=== PATIENT | female | born 1965 | race Caucasian/White ===

== ENCOUNTER 2018-09-07 14:31 | Inpatient (IN) ==
[2018-09-07] MEDS ORDERED: ONDANSETRON 4 MG/2 ML VIAL IV STA (14:55)
[2018-09-07] MEDS ORDERED: PANTOPRAZOLE 40 MG VIAL IV STA (14:55)
[2018-09-07] MEDS ORDERED: SODIUM CHLORIDE 0.9% 1,000 ML IV STA (14:55)
[2018-09-07] MEDS ORDERED: MEPERIDINE 25 MG/1 ML VIAL IV STA (14:58)
[2018-09-07 16:13] LABS: Basophils % 0.2 % (0.0-0.8); Eosinophils # 0.2 10*3/uL (0.0-0.87); Eosinophils % 3.9 % (0.00-10.9); Hemoglobin 11.8 GM/DL (12.0-16.0); Immature Granulocytes % 0.2 %; Immature Granulocytes Absolute 0.01 #; Lymphocytes # 0.8 10*3/uL (1.4-4.0); Lymphocytes % 16.4 % (21.3-54.2); Mean Corpuscular HGB Conc 31.9 GM/DL (32-36); Mean Corpuscular Hemoglobin 27 PG (27-34); Mean Corpuscular Volume 84.3 FL (87-102); Mean Platelet Volume 11.4 FL (9.6-12.0); Monocytes # 0.7 10*3/uL (0.11-0.8); Monocytes % 14.3 % (1.7-12.7); Neutrophils # 3.3 10*3/uL (1.4-7.4); Platelet Count 276 T/CUMM (130-400); Red Blood Count 4.39 MC/CUMM (3.8-5.5); Red Cell Distribution Width 12.5 % (9.3-17.3); White Blood Count 5.1 T/CUMM (4-12)
[2018-09-07 16:31] LABS: Albumin 3.1 G/DL (3.4-5.0); Bilirubin,Total 0.6 MG/DL (0.2-1.0); Calcium 8.1 MG/DL (8.5-10.1); Osmolality,Calculated 271.7 MOS/KG (273-304); Total Protein 6.3 G/DL (6.4-8.3)
[2018-09-07 17:25] LABS: Apearance,Urine Slightly Hazy (Clear); Bilirubin,Urine Negative (Negative); Blood, Urine Negative (Negative); Glucose,Urine (UA) Negative (Negative); Ketones,Urine 80 mg/dL (Negative); Nitrite,Urine Negative (Negative); Protein,Urine Negative; Squamous Epithelial Cell,Urine Many /HPF (0-10); Urine Color Yellow (Yellow); Urine Specific Gravity > 1.060 (1.001-1.035); WBC,Urine 1 /HPF (0-6)
[2018-09-07 17:28] LABS: RBC,Urine Occasional /HPF (0-4)
[2018-09-07] MEDS ORDERED: ONDANSETRON 4 MG TABLET PO PRN (18:22)
[2018-09-07] MEDS ORDERED: ONDANSETRON 4 MG/2 ML VIAL IV PRN (18:22)
[2018-09-07] MEDS ORDERED: ACETAMINOPHEN 325 MG TABLET PO PRN (18:22)
[2018-09-07] MEDS: SODIUM CHLORIDE 0.9% 1,000 ML IV SCH (19:32)
[2018-09-07] MEDS: PIPERACILLIN/TAZOBACTAM 3,375 MG in SODIUM CHLORIDE 0.9% 100 ML IV SCH (19:32)
[2018-09-08] MEDS: PIPERACILLIN/TAZOBACTAM 3,375 MG in SODIUM CHLORIDE 0.9% 100 ML IV SCH ×3 (02:55→18:50)
[2018-09-08 05:39] LABS: Basophils % 0.4 % (0.0-0.8); Eosinophils # 0.3 10*3/uL (0.0-0.87); Eosinophils % 5.3 % (0.00-10.9); Hematocrit 36.6 VOL% (35.7-47.0); Hemoglobin 11.8 GM/DL (12.0-16.0); Immature Granulocytes % 0.2 %; Immature Granulocytes Absolute 0.01 #; Lymphocytes # 0.9 10*3/uL (1.4-4.0); Lymphocytes % 16.5 % (21.3-54.2); Mean Corpuscular HGB Conc 32.2 GM/DL (32-36); Mean Corpuscular Hemoglobin 27 PG (27-34); Mean Corpuscular Volume 84.5 FL (87-102); Monocytes # 0.9 10*3/uL (0.11-0.8); Monocytes % 16.8 % (1.7-12.7); Neutrophils # 3.3 10*3/uL (1.4-7.4); Neutrophils % 60.8 % (38.7-73.9); Platelet Count 282 T/CUMM (130-400); Red Blood Count 4.33 MC/CUMM (3.8-5.5); Red Cell Distribution Width 12.8 % (9.3-17.3); White Blood Count 5.5 T/CUMM (4-12)
[2018-09-08 06:00] LABS: Band Neutrophils 2 % (0-10); Eosinophils 7 % (0-10); Hypochromasia 1+; Lymphocytes 18 % (20-55); Nucleated Red Blood Cells 1 (0-5); Segmented Neutrophils 58 % (50-85); Total Cells Counted 100
[2018-09-08 06:01] LABS: Microcytosis 1+; Platelet Estimate Normal
[2018-09-08 06:03] LABS: Bilirubin,Total 0.8 MG/DL (0.2-1.0); Calcium 8.6 MG/DL (8.5-10.1); Total Protein 6.2 G/DL (6.4-8.3)
[2018-09-08 06:04] LABS: Osmolality,Calculated 270.7 MOS/KG (273-304); Potassium 3.8 MMOL/L (3.5-5.1)
[2018-09-08] MEDS: PANTOPRAZOLE 40 MG VIAL IV SCH (08:54)
[2018-09-08] MEDS: ENOXAPARIN 40 MG/0.4 ML SYRINGE SUBCUT SCH (08:58)
[2018-09-08] MEDS ORDERED: ALBUMIN 25% 25 GM/100 ML VIAL IV ONE (12:23)
[2018-09-08] MEDS ORDERED: ALBUMIN 5% 12.5 GM/250 ML VIAL IV ONE (12:24)
[2018-09-08] MEDS: SODIUM CHLORIDE 0.9% 1,000 ML IV SCH ×2 (12:38→14:58)
[2018-09-08 13:27] LABS: Apearance,Urine CLEAR (Clear); Bilirubin,Urine Negative (Negative); Blood, Urine Negative (Negative); Glucose,Urine (UA) Negative (Negative); Ketones,Urine 80 mg/dL (Negative); Mucus,Urine Occasional /LPF (Occasional); Nitrite,Urine Negative (Negative); Protein,Urine Negative; RBC,Urine 1 /HPF (0-4); Squamous Epithelial Cell,Urine Occasional /HPF (0-10); Urine Color Yellow (Yellow); Urine Specific Gravity 1.021 (1.001-1.035); Urine Urobilinogen < 2.0 EU/DL (0.2-1.0)
[2018-09-08] MEDS ORDERED: ROPIVACAINE 0.5% 30 ML VIAL ONE (13:54)
[2018-09-08] MEDS ORDERED: MEPERIDINE 25 MG/1 ML VIAL ONE ×2 (14:21→14:30)
[2018-09-08] MEDS ORDERED: ONDANSETRON 4 MG/2 ML VIAL ONE ×2 (14:21→14:37)
[2018-09-08] MEDS ORDERED: PROMETHAZINE 25 MG/1 ML VIAL ONE (14:30)
[2018-09-08] MEDS: MEPERIDINE 25 MG/1 ML VIAL IV PRN ×2 (14:30→14:40)
[2018-09-08] MEDS ORDERED: LABETALOL 100 MG/20 ML VIAL IV ONE (14:32)
[2018-09-08] MEDS ORDERED: HYDROmorphone 2 MG/1 ML VIAL ONE (14:33)
[2018-09-08] MEDS ORDERED: PROPOFOL 200 MG/20 ML VIAL IV ONE (14:33)
[2018-09-08] MEDS ORDERED: DESFLURANE 1 UNIT/15 MINUTE INH ONE (14:33)
[2018-09-08] MEDS ORDERED: fentaNYL 100 MCG/2 ML VIAL ONE (14:34)
[2018-09-08] MEDS ORDERED: KETAMINE 500 MG/10 ML VIAL ONE (14:36)
[2018-09-08] MEDS ORDERED: ACETAMINOPHEN 1,000 MG/100 ML VIAL IV ONE (14:37)
[2018-09-08] MEDS ORDERED: ROCURONIUM 100 MG/10 ML VIAL IV ONE (14:37)
[2018-09-08] MEDS ORDERED: GLYCOPYRROLATE 0.4 MG/2 ML VIAL ONE (14:37)
[2018-09-08] MEDS ORDERED: DEXAMETHASONE 10 MG/1 ML VIAL ONE (14:37)
[2018-09-08] MEDS ORDERED: SUCCINYLCHOLINE 200 MG/10 ML VIAL ONE (14:37)
[2018-09-08] MEDS ORDERED: LACTATED RINGERS 2,000 ML IV ONE (14:38)
[2018-09-08] MEDS ORDERED: NEOSTIGMINE 10 MG/10 ML VIAL ONE (14:38)
[2018-09-08] MEDS ORDERED: ONDANSETRON 4 MG/2 ML VIAL IV PRN (14:47)
[2018-09-08] MEDS ORDERED: PROMETHAZINE INJ 25 MG in SODIUM CHLORIDE 0.9% 50 ML IV PRN (14:47)
[2018-09-08] MEDS: MORPHINE 4 MG/1 ML VIAL IV PRN (22:05)
[2018-09-09] MEDS: MORPHINE 4 MG/1 ML VIAL IV PRN ×2 (01:31→05:04)
[2018-09-09] MEDS: SODIUM CHLORIDE 0.9% 1,000 ML IV SCH ×3 (01:59→20:45)
[2018-09-09] MEDS: PIPERACILLIN/TAZOBACTAM 3,375 MG in SODIUM CHLORIDE 0.9% 100 ML IV SCH ×3 (03:05→18:13)
[2018-09-09] MEDS ORDERED: KETOROLAC 30 MG/1 ML VIAL IV ONE (04:21)
[2018-09-09 05:20] LABS: Basophils % 0.4 % (0.0-0.8); Eosinophils % 0.2 % (0.00-10.9); Hematocrit 38.6 VOL% (35.7-47.0); Hemoglobin 12.2 GM/DL (12.0-16.0); Immature Granulocytes % 0.4 %; Immature Granulocytes Absolute 0.03 #; Lymphocytes # 0.6 10*3/uL (1.4-4.0); Lymphocytes % 6.6 % (21.3-54.2); Mean Corpuscular HGB Conc 31.6 GM/DL (32-36); Mean Corpuscular Hemoglobin 27 PG (27-34); Mean Corpuscular Volume 84.8 FL (87-102); Monocytes # 0.9 10*3/uL (0.11-0.8); Monocytes % 10.5 % (1.7-12.7); Neutrophils # 6.9 10*3/uL (1.4-7.4); Neutrophils % 81.9 % (38.7-73.9); Platelet Count 333 T/CUMM (130-400); Red Blood Count 4.55 MC/CUMM (3.8-5.5); Red Cell Distribution Width 12.9 % (9.3-17.3); White Blood Count 8.4 T/CUMM (4-12)
[2018-09-09 05:37] LABS: Calcium 8.7 MG/DL (8.5-10.1); Osmolality,Calculated 266.1 MOS/KG (273-304); Potassium 4.4 MMOL/L (3.5-5.1)
[2018-09-09] MEDS ORDERED: HYDROmorphone 2 MG/1 ML VIAL IV PRN ×2 (08:41)
[2018-09-09] MEDS: PANTOPRAZOLE 40 MG VIAL IV SCH (09:08)
[2018-09-09] MEDS: KETOROLAC 15 MG/1 ML VIAL IV SCH ×3 (09:09→20:41)
[2018-09-09] MEDS: ENOXAPARIN 40 MG/0.4 ML SYRINGE SUBCUT SCH (09:10)
[2018-09-09] MEDS: MEPERIDINE 25 MG/1 ML VIAL IV PRN ×2 (10:37→16:10)
[2018-09-10] MEDS: MEPERIDINE 50 MG/1 ML VIAL IV PRN ×2 (01:34→19:57)
[2018-09-10] MEDS: PIPERACILLIN/TAZOBACTAM 3,375 MG in SODIUM CHLORIDE 0.9% 100 ML IV SCH ×2 (01:37→10:38)
[2018-09-10] MEDS: KETOROLAC 15 MG/1 ML VIAL IV SCH ×4 (02:51→21:02)
[2018-09-10] MEDS: ENOXAPARIN 40 MG/0.4 ML SYRINGE SUBCUT SCH (08:03)
[2018-09-10] MEDS: PANTOPRAZOLE 40 MG VIAL IV SCH (08:03)
[2018-09-10] MEDS: MEPERIDINE 25 MG/1 ML VIAL IV PRN ×2 (08:04→13:45)
[2018-09-10] MEDS: SODIUM CHLORIDE 0.9% 1,000 ML IV SCH ×2 (08:12→20:00)
[2018-09-11] MEDS: KETOROLAC 15 MG/1 ML VIAL IV SCH ×4 (02:15→20:36)
[2018-09-11] MEDS: MEPERIDINE 50 MG/1 ML VIAL IV PRN (05:01)
[2018-09-11] MEDS: SODIUM CHLORIDE 0.9% 1,000 ML IV SCH (05:02)
[2018-09-11 05:38] LABS: Basophils % 0.2 % (0.0-0.8); Eosinophils # 0.6 10*3/uL (0.0-0.87); Eosinophils % 9.5 % (0.00-10.9); Immature Granulocytes % 0.2 %; Immature Granulocytes Absolute 0.01 #; Lymphocytes # 0.4 10*3/uL (1.4-4.0); Lymphocytes % 6.7 % (21.3-54.2); Mean Corpuscular HGB Conc 32.3 GM/DL (32-36); Mean Corpuscular Hemoglobin 27 PG (27-34); Mean Platelet Volume 11.8 FL (9.6-12.0); Monocytes # 0.7 10*3/uL (0.11-0.8); Monocytes % 10.3 % (1.7-12.7); Neutrophils # 4.7 10*3/uL (1.4-7.4); Neutrophils % 73.1 % (38.7-73.9); Platelet Count 267 T/CUMM (130-400); Red Blood Count 3.69 MC/CUMM (3.8-5.5); Red Cell Distribution Width 13.6 % (9.3-17.3); White Blood Count 6.4 T/CUMM (4-12)
[2018-09-11 05:45] LABS: Calcium 8.4 MG/DL (8.5-10.1); Osmolality,Calculated 276.3 MOS/KG (273-304); Potassium 3.4 MMOL/L (3.5-5.1)
[2018-09-11] MEDS: PANTOPRAZOLE 40 MG VIAL IV SCH (09:01)
[2018-09-11] MEDS ORDERED: SODIUM CHLORIDE 0.9% 1,000 ML IV SCH (10:00)
[2018-09-11] MEDS: ENOXAPARIN 40 MG/0.4 ML SYRINGE SUBCUT SCH (10:56)
[2018-09-11] MEDS: POTASSIUM CHLORIDE INJ 20 MEQ in LACTATED RINGERS 1,000 ML IV SCH (11:23)
[2018-09-11] MEDS: MEPERIDINE 25 MG/1 ML VIAL IV PRN ×2 (11:56→20:37)
[2018-09-12] MEDS: MEPERIDINE 25 MG/1 ML VIAL IV PRN ×3 (03:40→18:00)
[2018-09-12] MEDS: KETOROLAC 15 MG/1 ML VIAL IV SCH ×4 (03:40→20:40)
[2018-09-12 06:09] LABS: Calcium 8.7 MG/DL (8.5-10.1); Osmolality,Calculated 278.1 MOS/KG (273-304); Potassium 3.7 MMOL/L (3.5-5.1)
[2018-09-12] MEDS: PANTOPRAZOLE 40 MG VIAL IV SCH (08:45)
[2018-09-12] MEDS: ENOXAPARIN 40 MG/0.4 ML SYRINGE SUBCUT SCH (08:46)
[2018-09-12] MEDS: MEPERIDINE 50 MG/1 ML VIAL IV PRN (11:26)
[2018-09-12] MEDS: POTASSIUM CHLORIDE INJ 20 MEQ in LACTATED RINGERS 1,000 ML IV SCH (12:48)
[2018-09-13] MEDS: MEPERIDINE 25 MG/1 ML VIAL IV PRN ×3 (00:58→19:16)
[2018-09-13] MEDS: KETOROLAC 15 MG/1 ML VIAL IV SCH ×4 (04:04→21:24)
[2018-09-13] MEDS: PANTOPRAZOLE 40 MG VIAL IV SCH (09:03)
[2018-09-13] MEDS: POTASSIUM CHLORIDE INJ 20 MEQ in LACTATED RINGERS 1,000 ML IV SCH (09:03)
[2018-09-13] MEDS: ENOXAPARIN 40 MG/0.4 ML SYRINGE SUBCUT SCH (09:06)
[2018-09-13] MEDS: MEPERIDINE 50 MG/1 ML VIAL IV PRN (12:41)
[2018-09-14] MEDS: MEPERIDINE 25 MG/1 ML VIAL IV PRN (01:51)
[2018-09-14] MEDS: KETOROLAC 15 MG/1 ML VIAL IV SCH (03:37)
[2018-09-14] MEDS: POTASSIUM CHLORIDE INJ 20 MEQ in LACTATED RINGERS 1,000 ML IV SCH (05:08)
[2018-09-14 07:33] VITALS: BP 126/80
[2018-09-14] MEDS: PANTOPRAZOLE 40 MG VIAL IV SCH (08:53)
[2018-09-14] MEDS: MEPERIDINE 50 MG/1 ML VIAL IV PRN (08:59)
[2018-09-14] MEDS: ENOXAPARIN 40 MG/0.4 ML SYRINGE SUBCUT SCH (09:03)
== END 2018-09-14 10:06 | disposition home or self-care (01) | DRG 330 ==
LOC: N.ED 14:31 → N.EDINP 17:00 → N.3E 18:09
PROVIDERS: ADMIT Surgery; ATTEND Surgery

== ENCOUNTER 2018-09-18 09:34 | Inpatient (IN) ==
[2018-09-18] MEDS ORDERED: LACTATED RINGERS 1,000 ML IV ONE (10:43)
[2018-09-18 10:59] LABS: Basophils # 0.1 10*3/uL (0.0-0.2); Basophils % 0.2 % (0.0-0.8); Eosinophils # 0.1 10*3/uL (0.0-0.87); Eosinophils % 0.4 % (0.00-10.9); Hematocrit 31.7 VOL% (35.7-47.0); Hemoglobin 10.3 GM/DL (12.0-16.0); Immature Granulocytes % 1.7 %; Immature Granulocytes Absolute 0.41 #; Lymphocytes # 0.5 10*3/uL (1.4-4.0); Mean Corpuscular HGB Conc 32.5 GM/DL (32-36); Mean Corpuscular Hemoglobin 27 PG (27-34); Mean Corpuscular Volume 81.9 FL (87-102); Mean Platelet Volume 10.6 FL (9.6-12.0); Monocytes # 1.4 10*3/uL (0.11-0.8); Monocytes % 5.5 % (1.7-12.7); Neutrophils # 22.2 10*3/uL (1.4-7.4); Neutrophils % 90.2 % (38.7-73.9); Platelet Count 416 T/CUMM (130-400); Red Blood Count 3.87 MC/CUMM (3.8-5.5); Red Cell Distribution Width 13.7 % (9.3-17.3); White Blood Count 24.6 T/CUMM (4-12)
[2018-09-18] MEDS ORDERED: LACTATED RINGERS 1,000 ML IV SCH (11:00)
[2018-09-18 11:18] LABS: Band Neutrophils 2 % (0-10); Eosinophils 1 % (0-10); Hypochromasia 1+; Lymphocytes 6 % (20-55); Platelet Estimate Adequate; Segmented Neutrophils 87 % (50-85); Total Cells Counted 100
[2018-09-18 11:20] LABS: Albumin 2.2 G/DL (3.4-5.0); Bilirubin,Total 1.1 MG/DL (0.2-1.0); Calcium 8.8 MG/DL (8.5-10.1); Osmolality,Calculated 270.1 MOS/KG (273-304); Potassium 3.1 MMOL/L (3.5-5.1); Total Protein 6.4 G/DL (6.4-8.3)
[2018-09-18] MEDS ORDERED: ALBUTEROL/IPRATROPIUM 3 ML NEB RESP TX PRN (11:59)
[2018-09-18] MEDS ORDERED: KETOROLAC 15 MG/1 ML VIAL IV PRN (11:59)
[2018-09-18] MEDS: PANTOPRAZOLE 40 MG VIAL IV SCH (13:55)
[2018-09-18] MEDS: PIPERACILLIN/TAZOBACTAM 3,375 MG in SODIUM CHLORIDE 0.9% 100 ML IV SCH ×2 (13:57→21:01)
[2018-09-18] MEDS: ONDANSETRON 4 MG/2 ML VIAL IV PRN (14:31)
[2018-09-18] MEDS: MEPERIDINE 25 MG/1 ML VIAL IV PRN ×2 (14:31→21:03)
[2018-09-18] MEDS: MEPERIDINE 50 MG TABLET PO PRN (17:36)
[2018-09-18] MEDS: metroNIDAZOLE INJ 500 MG in PREMIX 1 EACH IV SCH (18:18)
[2018-09-19] MEDS: MEPERIDINE 25 MG/1 ML VIAL IV PRN ×3 (03:25→13:47)
[2018-09-19] MEDS: metroNIDAZOLE INJ 500 MG in PREMIX 1 EACH IV SCH ×3 (03:26→19:44)
[2018-09-19] MEDS: PIPERACILLIN/TAZOBACTAM 3,375 MG in SODIUM CHLORIDE 0.9% 100 ML IV SCH ×3 (05:29→22:47)
[2018-09-19 05:58] LABS: Basophils % 0.3 % (0.0-0.8); Eosinophils # 0.1 10*3/uL (0.0-0.87); Eosinophils % 0.9 % (0.00-10.9); Hematocrit 25.9 VOL% (35.7-47.0); Hemoglobin 8.4 GM/DL (12.0-16.0); Immature Granulocytes Absolute 0.15 #; Lymphocytes # 0.6 10*3/uL (1.4-4.0); Lymphocytes % 3.8 % (21.3-54.2); Mean Corpuscular HGB Conc 32.4 GM/DL (32-36); Mean Corpuscular Hemoglobin 27 PG (27-34); Mean Corpuscular Volume 82.5 FL (87-102); Monocytes # 0.9 10*3/uL (0.11-0.8); Monocytes % 5.9 % (1.7-12.7); Neutrophils # 13.4 10*3/uL (1.4-7.4); Neutrophils % 88.1 % (38.7-73.9); Platelet Count 371 T/CUMM (130-400); Red Blood Count 3.14 MC/CUMM (3.8-5.5); Red Cell Distribution Width 13.9 % (9.3-17.3); White Blood Count 15.2 T/CUMM (4-12)
[2018-09-19 06:16] LABS: Albumin 1.7 G/DL (3.4-5.0); Bilirubin,Total 1.1 MG/DL (0.2-1.0); Calcium 8.2 MG/DL (8.5-10.1); Osmolality,Calculated 266.1 MOS/KG (273-304); Total Protein 5.2 G/DL (6.4-8.3)
[2018-09-19 06:23] LABS: Eosinophils 8 % (0-10); Lymphocytes 2 % (20-55); Segmented Neutrophils 84 % (50-85); Total Cells Counted 100
[2018-09-19 06:24] LABS: Hypochromasia 1+; Platelet Estimate Normal
[2018-09-19] MEDS: PANTOPRAZOLE 40 MG VIAL IV SCH (09:46)
[2018-09-19] MEDS: ONDANSETRON 4 MG/2 ML VIAL IV PRN (09:47)
[2018-09-19] MEDS: SODIUM CHLOR 0.9% KCL 40 MEQ 40 MEQ/1,000 ML BAG IV SCH ×2 (10:02→15:57)
[2018-09-19] MEDS: MEPERIDINE 50 MG TABLET PO PRN ×2 (16:56→22:48)
[2018-09-20] MEDS: SODIUM CHLOR 0.9% KCL 40 MEQ 40 MEQ/1,000 ML BAG IV SCH ×3 (00:58→23:13)
[2018-09-20] MEDS: metroNIDAZOLE INJ 500 MG in PREMIX 1 EACH IV SCH ×3 (03:49→21:07)
[2018-09-20 05:36] LABS: Basophils % 0.3 % (0.0-0.8); Eosinophils # 0.4 10*3/uL (0.0-0.87); Eosinophils % 3.5 % (0.00-10.9); Hematocrit 25.7 VOL% (35.7-47.0); Hemoglobin 8.3 GM/DL (12.0-16.0); Immature Granulocytes % 0.8 %; Lymphocytes # 0.7 10*3/uL (1.4-4.0); Lymphocytes % 5.5 % (21.3-54.2); Mean Corpuscular HGB Conc 32.3 GM/DL (32-36); Mean Corpuscular Hemoglobin 26 PG (27-34); Mean Corpuscular Volume 81.8 FL (87-102); Mean Platelet Volume 10.9 FL (9.6-12.0); Monocytes # 0.8 10*3/uL (0.11-0.8); Monocytes % 6.5 % (1.7-12.7); Neutrophils # 9.9 10*3/uL (1.4-7.4); Neutrophils % 83.4 % (38.7-73.9); Platelet Count 423 T/CUMM (130-400); Red Blood Count 3.14 MC/CUMM (3.8-5.5); Red Cell Distribution Width 14.3 % (9.3-17.3); White Blood Count 11.9 T/CUMM (4-12)
[2018-09-20] MEDS: PIPERACILLIN/TAZOBACTAM 3,375 MG in SODIUM CHLORIDE 0.9% 100 ML IV SCH ×3 (05:37→21:34)
[2018-09-20 05:46] LABS: Calcium 8.1 MG/DL (8.5-10.1); Osmolality,Calculated 266.1 MOS/KG (273-304); Potassium 3.3 MMOL/L (3.5-5.1)
[2018-09-20] MEDS: PANTOPRAZOLE 40 MG VIAL IV SCH (09:50)
[2018-09-20] MEDS: ENOXAPARIN 40 MG/0.4 ML SYRINGE SUBCUT SCH (14:40)
[2018-09-20] MEDS: ONDANSETRON 4 MG/2 ML VIAL IV PRN ×2 (16:10→21:36)
[2018-09-20] MEDS: MEPERIDINE 25 MG/1 ML VIAL IV PRN (16:10)
[2018-09-20] MEDS: POTASSIUM CHLORIDE RIDER 10 MEQ in PREMIX 1 EACH IV PRN ×3 (16:24→22:55)
[2018-09-20] MEDS: CLOTRIMAZOLE 10 MG TROCHE PO SCH ×2 (18:01→21:36)
[2018-09-20] MEDS ORDERED: PROMETHAZINE 25 MG/1 ML VIAL IM PRN (19:47)
[2018-09-20] MEDS: MEPERIDINE 50 MG TABLET PO PRN (21:35)
[2018-09-20] MEDS: ACETAMINOPHEN 325 MG TABLET PO PRN (23:19)
[2018-09-21] MEDS: MEPERIDINE 50 MG TABLET PO PRN ×3 (00:46→17:07)
[2018-09-21] MEDS: metroNIDAZOLE INJ 500 MG in PREMIX 1 EACH IV SCH ×3 (02:22→17:08)
[2018-09-21] MEDS: PIPERACILLIN/TAZOBACTAM 3,375 MG in SODIUM CHLORIDE 0.9% 100 ML IV SCH (05:14)
[2018-09-21 05:56] LABS: Basophils # 0.1 10*3/uL (0.0-0.2); Basophils % 0.4 % (0.0-0.8); Eosinophils # 0.6 10*3/uL (0.0-0.87); Eosinophils % 4.7 % (0.00-10.9); Hematocrit 29.9 VOL% (35.7-47.0); Hemoglobin 9.4 GM/DL (12.0-16.0); Immature Granulocytes Absolute 0.26 #; Lymphocytes % 7.8 % (21.3-54.2); Mean Corpuscular HGB Conc 31.4 GM/DL (32-36); Mean Corpuscular Hemoglobin 26 PG (27-34); Mean Corpuscular Volume 82.8 FL (87-102); Mean Platelet Volume 10.6 FL (9.6-12.0); Monocytes # 0.7 10*3/uL (0.11-0.8); Monocytes % 5.5 % (1.7-12.7); Neutrophils # 10.2 10*3/uL (1.4-7.4); Neutrophils % 79.6 % (38.7-73.9); Platelet Count 506 T/CUMM (130-400); Red Blood Count 3.61 MC/CUMM (3.8-5.5); Red Cell Distribution Width 14.3 % (9.3-17.3); White Blood Count 12.9 T/CUMM (4-12)
[2018-09-21 06:16] LABS: Calcium 8.8 MG/DL (8.5-10.1); Potassium 5.1 MMOL/L (3.5-5.1)
[2018-09-21 06:23] LABS: Hypochromasia 1+; Ovalocytes Slight; Platelet Estimate Adequate
[2018-09-21] MEDS: ONDANSETRON 4 MG/2 ML VIAL IV PRN ×4 (06:59→21:28)
[2018-09-21] MEDS: SODIUM CHLOR 0.9% KCL 40 MEQ 40 MEQ/1,000 ML BAG IV SCH ×4 (08:13→21:33)
[2018-09-21] MEDS ORDERED: cefTRIAXone 2,000 MG in SODIUM CHLORIDE 0.9% 100 ML IV SCH (09:00)
[2018-09-21] MEDS: PANTOPRAZOLE 40 MG VIAL IV SCH (09:46)
[2018-09-21] MEDS: cefTRIAXone 1,000 MG in SYRINGE 1 EACH IV SCH (09:46)
[2018-09-21] MEDS: CLOTRIMAZOLE 10 MG TROCHE PO SCH ×4 (09:46→21:26)
[2018-09-21] MEDS ORDERED: DEXTROSE 50% 25 GM/50 ML VIAL IV PRN (11:00)
[2018-09-21] MEDS ORDERED: GLUCAGON 1 MG VIAL IM PRN (11:00)
[2018-09-21] MEDS: ENOXAPARIN 40 MG/0.4 ML SYRINGE SUBCUT SCH (13:01)
[2018-09-21] MEDS: FAT EMULSION 20% 250 ML IV SCH (15:17)
[2018-09-21] MEDS ORDERED: TRACE ELEMENTS (5) 1 ML, MULTIVITAMIN INJ 10 ML in AMINO ACIDS/DEXT/LYTES 5-15% 2,000 ML IV SCH (17:00)
[2018-09-21] MEDS: MEPERIDINE 25 MG/1 ML VIAL IV PRN ×2 (17:18→21:35)
[2018-09-21] MEDS: INSULIN REGULAR 100 UNIT/ML SUBCUT SCH ×2 (18:01→21:57)
[2018-09-22] MEDS: INSULIN REGULAR 100 UNIT/ML SUBCUT SCH ×6 (01:08→21:37)
[2018-09-22] MEDS: metroNIDAZOLE INJ 500 MG in PREMIX 1 EACH IV SCH ×3 (01:09→17:49)
[2018-09-22] MEDS: ONDANSETRON 4 MG/2 ML VIAL IV PRN ×5 (01:36→19:55)
[2018-09-22] MEDS: MEPERIDINE 25 MG/1 ML VIAL IV PRN ×5 (01:40→20:39)
[2018-09-22 06:16] LABS: Calcium 8.4 MG/DL (8.5-10.1); Potassium 3.9 MMOL/L (3.5-5.1)
[2018-09-22] MEDS: SODIUM CHLOR 0.9% KCL 40 MEQ 40 MEQ/1,000 ML BAG IV SCH (07:43)
[2018-09-22] MEDS: CLOTRIMAZOLE 10 MG TROCHE PO SCH ×4 (09:00→21:36)
[2018-09-22] MEDS: PANTOPRAZOLE 40 MG VIAL IV SCH (09:09)
[2018-09-22] MEDS: cefTRIAXone 1,000 MG in SYRINGE 1 EACH IV SCH (09:10)
[2018-09-22] MEDS: ENOXAPARIN 40 MG/0.4 ML SYRINGE SUBCUT SCH (12:22)
[2018-09-22] MEDS: FAT EMULSION 20% 250 ML IV SCH (14:59)
[2018-09-22] MEDS: TRACE ELEMENTS (5) 1 ML, MULTIVITAMIN INJ 10 ML in AMINO ACIDS/DEXT/LYTES 5-15% 2,000 ML IV SCH (16:41)
[2018-09-22] MEDS ORDERED: DEXTROSE 10% 1,000 ML IV PRN (17:00)
[2018-09-22] MEDS: HYDROmorphone 2 MG/1 ML VIAL IV PRN ×2 (19:53→23:29)
[2018-09-23] MEDS: HYDROmorphone 2 MG/1 ML VIAL IV PRN ×2 (02:00→05:13)
[2018-09-23] MEDS: ONDANSETRON 4 MG/2 ML VIAL IV PRN ×4 (02:01→21:09)
[2018-09-23] MEDS: metroNIDAZOLE INJ 500 MG in PREMIX 1 EACH IV SCH ×3 (02:53→18:32)
[2018-09-23 04:57] LABS: Basophils # 0.1 10*3/uL (0.0-0.2); Eosinophils # 0.9 10*3/uL (0.0-0.87); Eosinophils % 8.1 % (0.00-10.9); Hematocrit 30.7 VOL% (35.7-47.0); Hemoglobin 9.6 GM/DL (12.0-16.0); Immature Granulocytes % 5.2 %; Immature Granulocytes Absolute 0.55 #; Lymphocytes # 1.2 10*3/uL (1.4-4.0); Lymphocytes % 11.7 % (21.3-54.2); Mean Corpuscular HGB Conc 31.3 GM/DL (32-36); Mean Corpuscular Hemoglobin 26 PG (27-34); Mean Corpuscular Volume 83.7 FL (87-102); Mean Platelet Volume 11.2 FL (9.6-12.0); Monocytes # 0.9 10*3/uL (0.11-0.8); Monocytes % 8.4 % (1.7-12.7); Neutrophils % 65.6 % (38.7-73.9); Platelet Count 436 T/CUMM (130-400); Red Blood Count 3.67 MC/CUMM (3.8-5.5); Red Cell Distribution Width 14.3 % (9.3-17.3); White Blood Count 10.6 T/CUMM (4-12)
[2018-09-23] MEDS: SODIUM CHLOR 0.9% KCL 40 MEQ 40 MEQ/1,000 ML BAG IV SCH (05:12)
[2018-09-23 05:23] LABS: Calcium 8.7 MG/DL (8.5-10.1); Osmolality,Calculated 276.7 MOS/KG (273-304); Potassium 4.2 MMOL/L (3.5-5.1)
[2018-09-23 05:26] LABS: Eosinophils 5 % (0-10); Lymphocytes 17 % (20-55); Metamyelocytes 5 %; Platelet Estimate Increased; Polychromasia 2+; Segmented Neutrophils 63 % (50-85); Total Cells Counted 100
[2018-09-23] MEDS: MEPERIDINE 25 MG/1 ML VIAL IV PRN ×2 (06:09→11:25)
[2018-09-23] MEDS: INSULIN REGULAR 100 UNIT/ML SUBCUT SCH ×4 (06:50→20:53)
[2018-09-23] MEDS: CLOTRIMAZOLE 10 MG TROCHE PO SCH ×4 (09:02→20:54)
[2018-09-23] MEDS: PANTOPRAZOLE 40 MG VIAL IV SCH (09:04)
[2018-09-23] MEDS: cefTRIAXone 1,000 MG in SYRINGE 1 EACH IV SCH (09:05)
[2018-09-23] MEDS: ENOXAPARIN 40 MG/0.4 ML SYRINGE SUBCUT SCH (11:06)
[2018-09-23] MEDS: TRACE ELEMENTS (5) 1 ML, MULTIVITAMIN INJ 10 ML in AMINO ACIDS/DEXT/LYTES 5-15% 2,000 ML IV SCH (16:36)
[2018-09-23] MEDS: FAT EMULSION 20% 250 ML IV SCH (16:45)
[2018-09-23] MEDS: MEPERIDINE 50 MG TABLET PO PRN (21:08)
[2018-09-24] MEDS: metroNIDAZOLE INJ 500 MG in PREMIX 1 EACH IV SCH ×3 (01:21→19:27)
[2018-09-24] MEDS: SODIUM CHLOR 0.9% KCL 40 MEQ 40 MEQ/1,000 ML BAG IV SCH (04:05)
[2018-09-24] MEDS: MEPERIDINE 50 MG TABLET PO PRN ×3 (04:23→21:36)
[2018-09-24 05:51] LABS: Calcium 8.7 MG/DL (8.5-10.1); Osmolality,Calculated 276.7 MOS/KG (273-304); Potassium 4.2 MMOL/L (3.5-5.1); Prealbumin 19.1 MG/DL (20-40)
[2018-09-24] MEDS: cefTRIAXone 1,000 MG in SYRINGE 1 EACH IV SCH (08:44)
[2018-09-24] MEDS: PANTOPRAZOLE 40 MG VIAL IV SCH (08:44)
[2018-09-24] MEDS: INSULIN REGULAR 100 UNIT/ML SUBCUT SCH ×4 (08:58→21:38)
[2018-09-24] MEDS: CLOTRIMAZOLE 10 MG TROCHE PO SCH ×4 (08:59→23:37)
[2018-09-24] MEDS: ENOXAPARIN 40 MG/0.4 ML SYRINGE SUBCUT SCH (10:36)
[2018-09-24] MEDS: TRACE ELEMENTS (5) 1 ML, MULTIVITAMIN INJ 10 ML in AMINO ACIDS/DEXT/LYTES 5-15% 2,000 ML IV SCH (16:19)
[2018-09-24] MEDS: FAT EMULSION 20% 250 ML IV SCH (16:19)
[2018-09-25] MEDS: metroNIDAZOLE INJ 500 MG in PREMIX 1 EACH IV SCH ×3 (01:33→21:50)
[2018-09-25 06:32] LABS: Basophils # 0.1 10*3/uL (0.0-0.2); Basophils % 0.9 % (0.0-0.8); Eosinophils # 1.5 10*3/uL (0.0-0.87); Eosinophils % 13.7 % (0.00-10.9); Hematocrit 30.2 VOL% (35.7-47.0); Hemoglobin 9.3 GM/DL (12.0-16.0); Immature Granulocytes Absolute 0.88 #; Lymphocytes % 9.4 % (21.3-54.2); Mean Corpuscular HGB Conc 30.8 GM/DL (32-36); Mean Corpuscular Hemoglobin 26 PG (27-34); Mean Corpuscular Volume 85.3 FL (87-102); Mean Platelet Volume 11.5 FL (9.6-12.0); Monocytes # 1.1 10*3/uL (0.11-0.8); Monocytes % 9.8 % (1.7-12.7); Neutrophils # 6.4 10*3/uL (1.4-7.4); Neutrophils % 58.2 % (38.7-73.9); Platelet Count 394 T/CUMM (130-400); Red Blood Count 3.54 MC/CUMM (3.8-5.5); Red Cell Distribution Width 14.5 % (9.3-17.3)
[2018-09-25 06:54] LABS: Calcium 8.7 MG/DL (8.5-10.1); Potassium 4.1 MMOL/L (3.5-5.1)
[2018-09-25 07:09] LABS: Eosinophils 16 % (0-10); Hypochromasia 1+; Lymphocytes 14 % (20-55); Myelocytes 1 %; Segmented Neutrophils 57 % (50-85); Total Cells Counted 100
[2018-09-25 07:10] LABS: Microcytosis 1+; Platelet Estimate Normal
[2018-09-25] MEDS: INSULIN REGULAR 100 UNIT/ML SUBCUT SCH ×4 (07:52→21:50)
[2018-09-25] MEDS: PANTOPRAZOLE 40 MG VIAL IV SCH (08:52)
[2018-09-25] MEDS: cefTRIAXone 1,000 MG in SYRINGE 1 EACH IV SCH (08:53)
[2018-09-25] MEDS: MEPERIDINE 25 MG/1 ML VIAL IV PRN ×3 (08:55→20:10)
[2018-09-25] MEDS ORDERED: fentaNYL 100 MCG/2 ML VIAL IV ONE (09:19)
[2018-09-25] MEDS ORDERED: DIAZEPAM 5 MG TABLET PO ONE (09:19)
[2018-09-25] MEDS ORDERED: MIDAZOLAM 2 MG/2 ML VIAL IV ONE (09:19)
[2018-09-25] MEDS: CLOTRIMAZOLE 10 MG TROCHE PO SCH ×4 (09:36→21:49)
[2018-09-25] MEDS: ENOXAPARIN 40 MG/0.4 ML SYRINGE SUBCUT SCH (12:20)
[2018-09-25] MEDS: ONDANSETRON 4 MG/2 ML VIAL IV PRN ×2 (13:40→20:13)
[2018-09-25] MEDS: TRACE ELEMENTS (5) 1 ML, MULTIVITAMIN INJ 10 ML in AMINO ACIDS/DEXT/LYTES 5-15% 2,000 ML IV SCH (15:58)
[2018-09-25] MEDS: FAT EMULSION 20% 250 ML IV SCH (15:58)
[2018-09-26] MEDS: MEPERIDINE 25 MG/1 ML VIAL IV PRN ×5 (01:30→21:32)
[2018-09-26] MEDS: ONDANSETRON 4 MG/2 ML VIAL IV PRN ×5 (01:32→21:35)
[2018-09-26] MEDS: metroNIDAZOLE INJ 500 MG in PREMIX 1 EACH IV SCH ×3 (04:26→20:47)
[2018-09-26] MEDS: INSULIN REGULAR 100 UNIT/ML SUBCUT SCH ×4 (07:45→20:47)
[2018-09-26] MEDS: cefTRIAXone 1,000 MG in SYRINGE 1 EACH IV SCH ×2 (07:46→08:34)
[2018-09-26] MEDS: PANTOPRAZOLE 40 MG VIAL IV SCH ×2 (07:46→08:34)
[2018-09-26] MEDS: CLOTRIMAZOLE 10 MG TROCHE PO SCH ×4 (08:34→20:48)
[2018-09-26] MEDS: ENOXAPARIN 40 MG/0.4 ML SYRINGE SUBCUT SCH (11:24)
[2018-09-26] MEDS: FAT EMULSION 20% 250 ML IV SCH (15:02)
[2018-09-26] MEDS: TRACE ELEMENTS (5) 1 ML, MULTIVITAMIN INJ 10 ML in AMINO ACIDS/DEXT/LYTES 5-15% 2,000 ML IV SCH (15:04)
[2018-09-27] MEDS: MEPERIDINE 25 MG/1 ML VIAL IV PRN ×5 (02:24→20:30)
[2018-09-27] MEDS: ONDANSETRON 4 MG/2 ML VIAL IV PRN ×4 (02:27→15:16)
[2018-09-27] MEDS: metroNIDAZOLE INJ 500 MG in PREMIX 1 EACH IV SCH ×3 (04:26→20:31)
[2018-09-27] MEDS: INSULIN REGULAR 100 UNIT/ML SUBCUT SCH ×4 (07:30→21:30)
[2018-09-27] MEDS: cefTRIAXone 1,000 MG in SYRINGE 1 EACH IV SCH ×2 (07:51→09:27)
[2018-09-27] MEDS: PANTOPRAZOLE 40 MG VIAL IV SCH ×2 (07:52→09:27)
[2018-09-27] MEDS: CLOTRIMAZOLE 10 MG TROCHE PO SCH ×4 (09:27→21:29)
[2018-09-27] MEDS: ENOXAPARIN 40 MG/0.4 ML SYRINGE SUBCUT SCH (13:12)
[2018-09-27] MEDS: TRACE ELEMENTS (5) 1 ML, MULTIVITAMIN INJ 10 ML in AMINO ACIDS/DEXT/LYTES 5-15% 2,000 ML IV SCH (16:09)
[2018-09-27] MEDS: FAT EMULSION 20% 250 ML IV SCH (16:10)
[2018-09-28] MEDS: MEPERIDINE 25 MG/1 ML VIAL IV PRN ×2 (00:56→04:36)
[2018-09-28] MEDS: ONDANSETRON 4 MG/2 ML VIAL IV PRN ×2 (00:59→04:40)
[2018-09-28] MEDS: metroNIDAZOLE INJ 500 MG in PREMIX 1 EACH IV SCH ×3 (04:41→21:57)
[2018-09-28 05:46] LABS: Calcium 8.5 MG/DL (8.5-10.1); Osmolality,Calculated 276.7 MOS/KG (273-304); Prealbumin 23.7 MG/DL (20-40)
[2018-09-28] MEDS: INSULIN REGULAR 100 UNIT/ML SUBCUT SCH ×4 (10:37→21:58)
[2018-09-28] MEDS: CLOTRIMAZOLE 10 MG TROCHE PO SCH ×4 (10:38→21:56)
[2018-09-28] MEDS: PANTOPRAZOLE 40 MG VIAL IV SCH (10:43)
[2018-09-28] MEDS: cefTRIAXone 1,000 MG in SYRINGE 1 EACH IV SCH (10:44)
[2018-09-28] MEDS: ACETAMINOPHEN 325 MG TABLET PO PRN (10:58)
[2018-09-28] MEDS: ENOXAPARIN 40 MG/0.4 ML SYRINGE SUBCUT SCH (10:59)
[2018-09-28] MEDS: MEPERIDINE 50 MG TABLET PO PRN ×2 (12:51→21:57)
[2018-09-28] MEDS: TRACE ELEMENTS (5) 1 ML, MULTIVITAMIN INJ 10 ML in AMINO ACIDS/DEXT/LYTES 5-15% 2,000 ML IV SCH (17:47)
[2018-09-28] MEDS: FAT EMULSION 20% 250 ML IV SCH (17:55)
[2018-09-29] MEDS: MEPERIDINE 50 MG TABLET PO PRN (02:11)
[2018-09-29] MEDS: metroNIDAZOLE INJ 500 MG in PREMIX 1 EACH IV SCH ×2 (04:20→11:53)
[2018-09-29] MEDS: INSULIN REGULAR 100 UNIT/ML SUBCUT SCH ×2 (07:25→12:06)
[2018-09-29] MEDS: CLOTRIMAZOLE 10 MG TROCHE PO SCH ×2 (09:44→14:04)
[2018-09-29] MEDS: PANTOPRAZOLE 40 MG VIAL IV SCH (09:49)
[2018-09-29 11:53] VITALS: BP 119/68
[2018-09-29] MEDS: ENOXAPARIN 40 MG/0.4 ML SYRINGE SUBCUT SCH (11:53)
[2018-09-29] MEDS: ONDANSETRON 4 MG/2 ML VIAL IV PRN (14:13)
== END 2018-09-29 16:03 | disposition home health service (06) | DRG 863 ==
LOC: N.5E
PROVIDERS: ADMIT Surgery; ATTEND Surgery

== ENCOUNTER 2018-10-14 13:47 | Inpatient (IN) ==
[2018-10-14] MEDS ORDERED: MORPHINE 4 MG/1 ML VIAL IV PRN (14:39)
[2018-10-14] MEDS ORDERED: MEPERIDINE 50 MG TABLET PO PRN (14:44)
[2018-10-14] MEDS ORDERED: KETOROLAC 30 MG/1 ML VIAL IV ONE (14:44)
[2018-10-14] MEDS ORDERED: KETOROLAC 30 MG/1 ML VIAL IV SCH (15:00)
[2018-10-14] MEDS ORDERED: LACTATED RINGERS 1,000 ML IV SCH (15:00)
[2018-10-14] MEDS: MEPERIDINE 25 MG/1 ML VIAL IV PRN ×3 (15:02→21:03)
[2018-10-14] MEDS: PIPERACILLIN/TAZOBACTAM 3,375 MG in SODIUM CHLORIDE 0.9% 100 ML IV SCH ×2 (15:04→23:29)
[2018-10-14] MEDS: ONDANSETRON 4 MG/2 ML VIAL IV PRN (15:09)
[2018-10-14 15:13] LABS: Basophils % 0.4 % (0.0-0.8); Eosinophils # 0.7 10*3/uL (0.0-0.87); Eosinophils % 7.6 % (0.00-10.9); Hematocrit 36.5 VOL% (35.7-47.0); Hemoglobin 11.5 GM/DL (12.0-16.0); Immature Granulocytes % 0.3 %; Immature Granulocytes Absolute 0.03 #; Lymphocytes # 0.7 10*3/uL (1.4-4.0); Lymphocytes % 7.6 % (21.3-54.2); Mean Corpuscular HGB Conc 31.5 GM/DL (32-36); Mean Corpuscular Hemoglobin 27 PG (27-34); Mean Corpuscular Volume 85.1 FL (87-102); Mean Platelet Volume 11.2 FL (9.6-12.0); Monocytes # 0.6 10*3/uL (0.11-0.8); Monocytes % 6.4 % (1.7-12.7); Neutrophils # 7.6 10*3/uL (1.4-7.4); Neutrophils % 77.7 % (38.7-73.9); Platelet Count 297 T/CUMM (130-400); Red Blood Count 4.29 MC/CUMM (3.8-5.5); Red Cell Distribution Width 15.9 % (9.3-17.3); White Blood Count 9.8 T/CUMM (4-12)
[2018-10-14 15:46] LABS: Alanine Aminotransferase 19 U/L (13-56); Albumin 3.3 G/DL (3.4-5.0); Alkaline Phosphatase 143 U/L (45-117); Aspartate Amino Transferase 24 U/L (0-37); Bilirubin,Total < 0.39 MG/DL (0.2-1.0); Blood Urea Nitrogen 4 MG/DL (7-18); Calcium 9.1 MG/DL (8.5-10.1); Glucose 110 MG/DL (74-106); Osmolality,Calculated 272.7 MOS/KG (273-304); Potassium 3.4 MMOL/L (3.5-5.1); Sodium 138 MMOL/L (136-145); Total Protein 7.3 G/DL (6.4-8.3)
[2018-10-14] MEDS ORDERED: ACETAMINOPHEN 325 MG TABLET PO PRN (15:58)
[2018-10-14] MEDS: LACTATED RINGERS 1,000 ML IV SCH (16:39)
[2018-10-14] MEDS: PANTOPRAZOLE 40 MG VIAL IV SCH (16:39)
[2018-10-14 17:59] LABS: Apearance,Urine CLEAR (Clear); Bilirubin,Urine Negative (Negative); Blood, Urine Negative (Negative); Glucose,Urine (UA) Negative (Negative); Ketones,Urine 5 mg/dL (Negative); Nitrite,Urine Negative (Negative); Protein,Urine Negative; RBC,Urine 5 /HPF (0-4); Squamous Epithelial Cell,Urine Occasional /HPF (0-10); Urine Color Yellow (Yellow); Urine Specific Gravity > 1.060 (1.001-1.035); Urine Urobilinogen < 2.0 EU/DL (0.2-1.0); WBC,Urine <1 /HPF (0-6)
[2018-10-14] MEDS: KETOROLAC 15 MG/1 ML VIAL IV PRN (21:06)
[2018-10-15] MEDS: MEPERIDINE 25 MG/1 ML VIAL IV PRN ×9 (00:51→23:03)
[2018-10-15] MEDS: LACTATED RINGERS 1,000 ML IV SCH ×6 (01:52→21:03)
[2018-10-15] MEDS: KETOROLAC 15 MG/1 ML VIAL IV PRN ×4 (02:38→23:00)
[2018-10-15 04:23] LABS: Basophils # 0.1 10*3/uL (0.0-0.2); Basophils % 0.7 % (0.0-0.8); Eosinophils # 0.8 10*3/uL (0.0-0.87); Eosinophils % 11.8 % (0.00-10.9); Hematocrit 29.9 VOL% (35.7-47.0); Hemoglobin 9.7 GM/DL (12.0-16.0); Immature Granulocytes % 0.1 %; Immature Granulocytes Absolute 0.01 #; Lymphocytes # 0.8 10*3/uL (1.4-4.0); Lymphocytes % 11.4 % (21.3-54.2); Mean Corpuscular HGB Conc 32.4 GM/DL (32-36); Mean Corpuscular Hemoglobin 28 PG (27-34); Mean Corpuscular Volume 85.2 FL (87-102); Mean Platelet Volume 12.1 FL (9.6-12.0); Monocytes # 0.7 10*3/uL (0.11-0.8); Monocytes % 10.2 % (1.7-12.7); Neutrophils # 4.7 10*3/uL (1.4-7.4); Neutrophils % 65.8 % (38.7-73.9); Platelet Count 216 T/CUMM (130-400); Red Blood Count 3.51 MC/CUMM (3.8-5.5); Red Cell Distribution Width 15.9 % (9.3-17.3); White Blood Count 7.1 T/CUMM (4-12)
[2018-10-15 04:38] LABS: Albumin 2.5 G/DL (3.4-5.0); Bilirubin,Total 0.4 MG/DL (0.2-1.0); Calcium 8.6 MG/DL (8.5-10.1); Osmolality,Calculated 273.5 MOS/KG (273-304); Potassium 3.3 MMOL/L (3.5-5.1)
[2018-10-15 05:26] LABS: Eosinophils 11 % (0-10); Lymphocytes 10 % (20-55); Segmented Neutrophils 72 % (50-85); Total Cells Counted 100
[2018-10-15 05:27] LABS: Anisocytosis Slight; Microcytosis Slight
[2018-10-15 05:28] LABS: Platelet Estimate Normal; Stomatocytes Slight
[2018-10-15] MEDS: PIPERACILLIN/TAZOBACTAM 3,375 MG in SODIUM CHLORIDE 0.9% 100 ML IV SCH ×3 (06:04→22:53)
[2018-10-15] MEDS: PANTOPRAZOLE 40 MG VIAL IV SCH (08:51)
[2018-10-15] MEDS ORDERED: DEXTROSE 50% 25 GM/50 ML SYRINGE IV PRN (13:28)
[2018-10-15] MEDS ORDERED: GLUCAGON 1 MG VIAL IM PRN (13:28)
[2018-10-15] MEDS ORDERED: POTASSIUM CHLORIDE RIDER 10 MEQ in PREMIX 1 EACH IV PRN (13:55)
[2018-10-15] MEDS ORDERED: MAGNESIUM SULF RIDER 2 GM in PREMIX 1 EACH IV PRN (13:55)
[2018-10-15] MEDS ORDERED: MAGNESIUM SULF RIDER 4 GM in PREMIX 1 EACH IV PRN (13:55)
[2018-10-15] MEDS: POTASSIUM CHLORIDE RIDER 20 MEQ in PREMIX 1 EACH IV PRN ×2 (15:04→18:14)
[2018-10-15] MEDS: FAT EMULSION 20% 250 ML IV SCH (15:06)
[2018-10-15] MEDS ORDERED: TRACE ELEMENTS (5) 1 ML, MULTIVITAMIN INJ 10 ML in AMINO ACIDS/DEXT/LYTES 5-15% 2,000 ML IV SCH (17:00)
[2018-10-15] MEDS: INSULIN REGULAR 100 UNIT/ML SUBCUT SCH (18:10)
[2018-10-16] MEDS: INSULIN REGULAR 100 UNIT/ML SUBCUT SCH ×5 (00:13→23:55)
[2018-10-16] MEDS: MEPERIDINE 25 MG/1 ML VIAL IV PRN ×10 (02:22→23:55)
[2018-10-16] MEDS: LACTATED RINGERS 1,000 ML IV SCH ×4 (03:02→19:47)
[2018-10-16 04:46] LABS: Basophils % 0.5 % (0.0-0.8); Eosinophils # 1.1 10*3/uL (0.0-0.87); Eosinophils % 12.9 % (0.00-10.9); Hematocrit 30.7 VOL% (35.7-47.0); Hemoglobin 9.6 GM/DL (12.0-16.0); Immature Granulocytes % 0.2 %; Immature Granulocytes Absolute 0.02 #; Lymphocytes # 0.5 10*3/uL (1.4-4.0); Lymphocytes % 6.1 % (21.3-54.2); Mean Corpuscular HGB Conc 31.3 GM/DL (32-36); Mean Corpuscular Hemoglobin 27 PG (27-34); Mean Corpuscular Volume 86.5 FL (87-102); Mean Platelet Volume 11.7 FL (9.6-12.0); Monocytes # 0.8 10*3/uL (0.11-0.8); Monocytes % 9.6 % (1.7-12.7); Neutrophils # 5.8 10*3/uL (1.4-7.4); Neutrophils % 70.7 % (38.7-73.9); Platelet Count 228 T/CUMM (130-400); Red Blood Count 3.55 MC/CUMM (3.8-5.5); Red Cell Distribution Width 15.6 % (9.3-17.3); White Blood Count 8.2 T/CUMM (4-12)
[2018-10-16 05:00] LABS: Albumin 2.7 G/DL (3.4-5.0); Bilirubin,Total 0.8 MG/DL (0.2-1.0); Calcium 8.6 MG/DL (8.5-10.1); Osmolality,Calculated 272.7 MOS/KG (273-304); Potassium 4.3 MMOL/L (3.5-5.1); Total Protein 6.1 G/DL (6.4-8.3)
[2018-10-16 05:01] LABS: Calcium 8.3 MG/DL (8.5-10.1); Osmolality,Calculated 272.7 MOS/KG (273-304); Prealbumin 11.1 MG/DL (20-40)
[2018-10-16 05:19] LABS: Anisocytosis Slight; Band Neutrophils 2 % (0-10); Eosinophils 15 % (0-10); Lymphocytes 9 % (20-55); Macrocytosis Slight; Platelet Estimate Normal; Segmented Neutrophils 69 % (50-85); Total Cells Counted 100
[2018-10-16] MEDS: KETOROLAC 15 MG/1 ML VIAL IV PRN ×3 (06:05→23:59)
[2018-10-16] MEDS: PIPERACILLIN/TAZOBACTAM 3,375 MG in SODIUM CHLORIDE 0.9% 100 ML IV SCH ×3 (06:37→23:16)
[2018-10-16] MEDS: PANTOPRAZOLE 40 MG VIAL IV SCH (08:57)
[2018-10-16] MEDS: ONDANSETRON 4 MG/2 ML VIAL IV PRN ×2 (11:14→17:39)
[2018-10-16] MEDS: FAT EMULSION 20% 250 ML IV SCH (15:12)
[2018-10-16] MEDS ORDERED: DEXTROSE 10% 1,000 ML IV PRN (17:00)
[2018-10-16] MEDS: TRACE ELEMENTS (5) 1 ML, MULTIVITAMIN INJ 10 ML in AMINO ACIDS/DEXT/LYTES 5-15% 2,000 ML IV SCH (17:32)
[2018-10-17] MEDS: LACTATED RINGERS 1,000 ML IV SCH ×5 (00:42→23:48)
[2018-10-17] MEDS: MEPERIDINE 25 MG/1 ML VIAL IV PRN ×10 (03:25→23:43)
[2018-10-17] MEDS: KETOROLAC 15 MG/1 ML VIAL IV PRN ×3 (06:09→21:31)
[2018-10-17] MEDS: PIPERACILLIN/TAZOBACTAM 3,375 MG in SODIUM CHLORIDE 0.9% 100 ML IV SCH ×3 (06:10→22:41)
[2018-10-17] MEDS: INSULIN REGULAR 100 UNIT/ML SUBCUT SCH ×4 (06:15→23:47)
[2018-10-17] MEDS: PANTOPRAZOLE 40 MG VIAL IV SCH (08:27)
[2018-10-17] MEDS ORDERED: BISACODYL 10 MG SUPP RECTAL ONE (10:16)
[2018-10-17] MEDS: FAT EMULSION 20% 250 ML IV SCH (14:14)
[2018-10-17] MEDS: ONDANSETRON 4 MG/2 ML VIAL IV PRN (17:07)
[2018-10-17] MEDS: TRACE ELEMENTS (5) 1 ML, MULTIVITAMIN INJ 10 ML in AMINO ACIDS/DEXT/LYTES 5-15% 2,000 ML IV SCH (17:19)
[2018-10-18] MEDS: MEPERIDINE 25 MG/1 ML VIAL IV PRN ×10 (01:57→22:47)
[2018-10-18] MEDS: LACTATED RINGERS 1,000 ML IV SCH ×6 (05:57→23:40)
[2018-10-18] MEDS: ONDANSETRON 4 MG/2 ML VIAL IV PRN ×2 (06:16→22:47)
[2018-10-18] MEDS: KETOROLAC 15 MG/1 ML VIAL IV PRN ×3 (06:16→22:47)
[2018-10-18] MEDS: PIPERACILLIN/TAZOBACTAM 3,375 MG in SODIUM CHLORIDE 0.9% 100 ML IV SCH ×3 (06:17→23:40)
[2018-10-18] MEDS: INSULIN REGULAR 100 UNIT/ML SUBCUT SCH ×4 (06:23→23:40)
[2018-10-18] MEDS: PANTOPRAZOLE 40 MG VIAL IV SCH (08:51)
[2018-10-18 10:23] LABS: Basophils % 0.3 % (0.0-0.8); Eosinophils # 0.8 10*3/uL (0.0-0.87); Eosinophils % 9.3 % (0.00-10.9); Hematocrit 34.9 VOL% (35.7-47.0); Hemoglobin 10.8 GM/DL (12.0-16.0); Immature Granulocytes % 0.3 %; Immature Granulocytes Absolute 0.03 #; Lymphocytes # 0.5 10*3/uL (1.4-4.0); Mean Corpuscular HGB Conc 30.9 GM/DL (32-36); Mean Corpuscular Hemoglobin 27 PG (27-34); Mean Corpuscular Volume 87.9 FL (87-102); Mean Platelet Volume 11.7 FL (9.6-12.0); Monocytes # 0.9 10*3/uL (0.11-0.8); Monocytes % 9.6 % (1.7-12.7); Neutrophils # 6.6 10*3/uL (1.4-7.4); Neutrophils % 74.5 % (38.7-73.9); Platelet Count 245 T/CUMM (130-400); Red Blood Count 3.97 MC/CUMM (3.8-5.5); Red Cell Distribution Width 15.5 % (9.3-17.3); White Blood Count 8.8 T/CUMM (4-12)
[2018-10-18 10:56] LABS: Albumin 2.9 G/DL (3.4-5.0); Bilirubin,Total 0.6 MG/DL (0.2-1.0); Calcium 8.7 MG/DL (8.5-10.1); Osmolality,Calculated 269.1 MOS/KG (273-304); Potassium 4.4 MMOL/L (3.5-5.1); Total Protein 6.7 G/DL (6.4-8.3)
[2018-10-18] MEDS: FAT EMULSION 20% 250 ML IV SCH (14:49)
[2018-10-18] MEDS: TRACE ELEMENTS (5) 1 ML, MULTIVITAMIN INJ 10 ML in AMINO ACIDS/DEXT/LYTES 5-15% 2,000 ML IV SCH (16:45)
[2018-10-19] MEDS: MEPERIDINE 25 MG/1 ML VIAL IV PRN ×8 (00:47→22:17)
[2018-10-19] MEDS: LACTATED RINGERS 1,000 ML IV SCH ×2 (05:17→07:06)
[2018-10-19] MEDS: INSULIN REGULAR 100 UNIT/ML SUBCUT SCH (05:20)
[2018-10-19 05:39] LABS: Prealbumin 8.2 MG/DL (20-40)
[2018-10-19] MEDS: KETOROLAC 15 MG/1 ML VIAL IV PRN ×2 (06:55→17:39)
[2018-10-19] MEDS: PIPERACILLIN/TAZOBACTAM 3,375 MG in SODIUM CHLORIDE 0.9% 100 ML IV SCH ×3 (06:59→23:20)
[2018-10-19] MEDS: MEPERIDINE 50 MG TABLET PO PRN ×3 (09:24→20:54)
[2018-10-19] MEDS: PANTOPRAZOLE 40 MG VIAL IV SCH (09:24)
[2018-10-19] MEDS: FAT EMULSION 20% 250 ML IV SCH (17:37)
[2018-10-19] MEDS: TRACE ELEMENTS (5) 1 ML, MULTIVITAMIN INJ 10 ML in AMINO ACIDS/DEXT/LYTES 5-15% 2,000 ML IV SCH (20:55)
[2018-10-20] MEDS: KETOROLAC 15 MG/1 ML VIAL IV PRN ×3 (00:19→20:56)
[2018-10-20] MEDS: MEPERIDINE 25 MG/1 ML VIAL IV PRN ×6 (00:20→20:57)
[2018-10-20 05:27] LABS: Basophils # 0.1 10*3/uL (0.0-0.2); Basophils % 0.6 % (0.0-0.8); Eosinophils # 1.3 10*3/uL (0.0-0.87); Eosinophils % 14.2 % (0.00-10.9); Hematocrit 34.9 VOL% (35.7-47.0); Immature Granulocytes % 0.4 %; Immature Granulocytes Absolute 0.04 #; Lymphocytes # 0.8 10*3/uL (1.4-4.0); Mean Corpuscular HGB Conc 31.5 GM/DL (32-36); Mean Corpuscular Hemoglobin 27 PG (27-34); Mean Corpuscular Volume 86.6 FL (87-102); Monocytes # 1.1 10*3/uL (0.11-0.8); Monocytes % 12.6 % (1.7-12.7); Neutrophils # 5.7 10*3/uL (1.4-7.4); Neutrophils % 63.2 % (38.7-73.9); Platelet Count 248 T/CUMM (130-400); Red Blood Count 4.03 MC/CUMM (3.8-5.5); Red Cell Distribution Width 15.8 % (9.3-17.3)
[2018-10-20 05:45] LABS: Albumin 2.5 G/DL (3.4-5.0); Bilirubin,Total 0.6 MG/DL (0.2-1.0); Calcium 8.6 MG/DL (8.5-10.1); Osmolality,Calculated 270.2 MOS/KG (273-304); Potassium 4.5 MMOL/L (3.5-5.1); Total Protein 6.4 G/DL (6.4-8.3)
[2018-10-20] MEDS: LACTATED RINGERS 1,000 ML IV SCH ×3 (05:55→06:47)
[2018-10-20 06:20] LABS: Eosinophils 17 % (0-10); Hypochromasia Slight; Lymphocytes 16 % (20-55); Platelet Estimate Normal; Segmented Neutrophils 59 % (50-85); Total Cells Counted 100
[2018-10-20] MEDS: PIPERACILLIN/TAZOBACTAM 3,375 MG in SODIUM CHLORIDE 0.9% 100 ML IV SCH ×3 (06:41→23:08)
[2018-10-20] MEDS: MEPERIDINE 50 MG TABLET PO PRN ×2 (06:41→14:03)
[2018-10-20] MEDS: PANTOPRAZOLE 40 MG VIAL IV SCH (08:25)
[2018-10-20] MEDS: ONDANSETRON 4 MG/2 ML VIAL IV PRN (11:47)
[2018-10-20] MEDS ORDERED: DIAZEPAM 5 MG TABLET PO ONE (12:00)
[2018-10-20] MEDS: FAT EMULSION 20% 250 ML IV SCH (15:00)
[2018-10-21] MEDS: MEPERIDINE 50 MG TABLET PO PRN ×3 (01:25→20:15)
[2018-10-21] MEDS: MEPERIDINE 25 MG/1 ML VIAL IV PRN ×6 (03:17→22:23)
[2018-10-21] MEDS: KETOROLAC 15 MG/1 ML VIAL IV PRN ×3 (03:19→18:13)
[2018-10-21] MEDS: LACTATED RINGERS 1,000 ML IV SCH ×5 (05:16→19:27)
[2018-10-21 06:02] LABS: Cancer Antigen 19-9 168.1 U/ML (0-37)
[2018-10-21 06:18] LABS: Carcinoembryonic Antigen 420.7 NG/ML (0.0-5.0)
[2018-10-21] MEDS: PIPERACILLIN/TAZOBACTAM 3,375 MG in SODIUM CHLORIDE 0.9% 100 ML IV SCH ×3 (06:36→23:23)
[2018-10-21] MEDS: TRACE ELEMENTS (5) 1 ML, MULTIVITAMIN INJ 10 ML in AMINO ACIDS/DEXT/LYTES 5-15% 2,000 ML IV SCH ×2 (07:35→16:40)
[2018-10-21] MEDS: PANTOPRAZOLE 40 MG VIAL IV SCH (09:04)
[2018-10-21] MEDS ORDERED: BUPIVACAINE 0.5% 50 ML VIAL ONE (11:46)
[2018-10-21] MEDS ORDERED: ROPIVACAINE 0.5% 30 ML VIAL ONE ×2 (11:46→11:58)
[2018-10-21] MEDS ORDERED: LIDOCAINE 1% 5 ML VIAL ONE (11:46)
[2018-10-21] MEDS ORDERED: methylPREDNISolone ACETATE 80 MG/1 ML VIAL ONE (11:58)
[2018-10-21] MEDS ORDERED: PROPOFOL 200 MG/20 ML VIAL IV ONE (12:12)
[2018-10-21] MEDS ORDERED: fentaNYL 100 MCG/2 ML VIAL ONE (12:12)
[2018-10-21] MEDS ORDERED: ALBUMIN 5% 12.5 GM in PREMIX 1 EACH IV ONE (12:47)
[2018-10-21] MEDS ORDERED: ALBUMIN 5% 12.5 GM/250 ML VIAL IV ONE (12:50)
[2018-10-21] MEDS ORDERED: METOPROLOL TARTRATE 5 MG/5 ML VIAL IV ONE ×2 (13:27→13:33)
[2018-10-21] MEDS: FAT EMULSION 20% 250 ML IV SCH (14:09)
[2018-10-22] MEDS: MEPERIDINE 25 MG/1 ML VIAL IV PRN ×4 (00:29→09:36)
[2018-10-22] MEDS: KETOROLAC 15 MG/1 ML VIAL IV PRN (02:23)
[2018-10-22] MEDS: LACTATED RINGERS 1,000 ML IV SCH ×2 (04:15→23:06)
[2018-10-22 04:58] LABS: Basophils % 0.4 % (0.0-0.8); Eosinophils # 0.7 10*3/uL (0.0-0.87); Hematocrit 31.4 VOL% (35.7-47.0); Hemoglobin 9.9 GM/DL (12.0-16.0); Immature Granulocytes % 0.7 %; Immature Granulocytes Absolute 0.08 #; Lymphocytes # 0.5 10*3/uL (1.4-4.0); Lymphocytes % 4.2 % (21.3-54.2); Mean Corpuscular HGB Conc 31.5 GM/DL (32-36); Mean Corpuscular Hemoglobin 27 PG (27-34); Mean Platelet Volume 12.2 FL (9.6-12.0); Monocytes # 1.1 10*3/uL (0.11-0.8); Monocytes % 10.1 % (1.7-12.7); Neutrophils # 8.9 10*3/uL (1.4-7.4); Neutrophils % 78.6 % (38.7-73.9); Platelet Count 253 T/CUMM (130-400); Red Blood Count 3.65 MC/CUMM (3.8-5.5); Red Cell Distribution Width 15.5 % (9.3-17.3); White Blood Count 11.3 T/CUMM (4-12)
[2018-10-22 05:15] LABS: Albumin 2.4 G/DL (3.4-5.0); Bilirubin,Total 0.7 MG/DL (0.2-1.0); Calcium 8.3 MG/DL (8.5-10.1); Potassium 4.3 MMOL/L (3.5-5.1); Prealbumin 6.3 MG/DL (20-40); Total Protein 5.9 G/DL (6.4-8.3)
[2018-10-22 05:40] LABS: Band Neutrophils 3 % (0-10); Eosinophils 6 % (0-10); Lymphocytes 6 % (20-55); Platelet Estimate Normal; Segmented Neutrophils 72 % (50-85); Total Cells Counted 100
[2018-10-22] MEDS ORDERED: TRACE ELEMENTS (5) 1 ML, MULTIVITAMIN INJ 10 ML in AMINO ACIDS/DEXT/LYTES 5-15% 2,000 ML IV SCH (08:00)
[2018-10-22] MEDS: PANTOPRAZOLE 40 MG VIAL IV SCH (09:33)
[2018-10-22] MEDS: HYDROmorphone 2 MG/1 ML VIAL IV PRN ×4 (11:17→23:16)
[2018-10-22] MEDS: ONDANSETRON 4 MG/2 ML VIAL IV PRN ×4 (11:24→23:14)
[2018-10-22] MEDS ORDERED: ALCOHOL DEHYDRATED NERVEBLOCK ONE (12:49)
[2018-10-22] MEDS: METOPROLOL SUCCINATE XL 25 MG TABLET PO SCH (13:08)
[2018-10-22] MEDS: FAT EMULSION 20% 250 ML IV SCH (14:12)
[2018-10-22] MEDS: TRACE ELEMENTS (5) 1 ML, MULTIVITAMIN INJ 10 ML in AMINO ACIDS/DEXT/LYTES 5-15% 2,000 ML IV SCH (16:12)
[2018-10-23] MEDS: MEPERIDINE 50 MG TABLET PO PRN ×3 (02:21→22:49)
[2018-10-23] MEDS: ONDANSETRON 4 MG/2 ML VIAL IV PRN ×2 (04:27→09:48)
[2018-10-23] MEDS: HYDROmorphone 2 MG/1 ML VIAL IV PRN ×2 (04:30→09:48)
[2018-10-23] MEDS: LACTATED RINGERS 1,000 ML IV SCH ×4 (06:37→20:45)
[2018-10-23] MEDS: METOPROLOL SUCCINATE XL 25 MG TABLET PO SCH (08:40)
[2018-10-23] MEDS: PANTOPRAZOLE 40 MG VIAL IV SCH (09:48)
[2018-10-23] MEDS ORDERED: ROPIVACAINE 0.5% 30 ML VIAL ONE (12:16)
[2018-10-23] MEDS ORDERED: MIDAZOLAM 2 MG/2 ML VIAL ONE (13:06)
[2018-10-23] MEDS ORDERED: fentaNYL 100 MCG/2 ML VIAL ONE (13:07)
[2018-10-23] MEDS ORDERED: PROPOFOL 200 MG/20 ML VIAL IV ONE (13:07)
[2018-10-23] MEDS: FAT EMULSION 20% 250 ML IV SCH (14:03)
[2018-10-23] MEDS ORDERED: PROMETHAZINE 25 MG/1 ML VIAL IM PRN (15:08)
[2018-10-23] MEDS: TRACE ELEMENTS (5) 1 ML, MULTIVITAMIN INJ 10 ML in AMINO ACIDS/DEXT/LYTES 5-15% 2,000 ML IV SCH (16:54)
[2018-10-24] MEDS: MEPERIDINE 50 MG TABLET PO PRN ×3 (03:38→18:08)
[2018-10-24] MEDS: LACTATED RINGERS 1,000 ML IV SCH ×2 (04:50→13:17)
[2018-10-24] MEDS: PANTOPRAZOLE 40 MG VIAL IV SCH (09:28)
[2018-10-24] MEDS: METOPROLOL SUCCINATE XL 25 MG TABLET PO SCH (09:28)
[2018-10-24] MEDS ORDERED: fentaNYL 25 MCG/HR PATCH TRANSDERM SCH (15:00)
[2018-10-24] MEDS: TRACE ELEMENTS (5) 1 ML, MULTIVITAMIN INJ 10 ML in AMINO ACIDS/DEXT/LYTES 5-15% 2,000 ML IV SCH (18:31)
[2018-10-25] MEDS: MEPERIDINE 50 MG TABLET PO PRN ×2 (00:16→06:35)
[2018-10-25] MEDS: METOPROLOL SUCCINATE XL 25 MG TABLET PO SCH (09:16)
[2018-10-25] MEDS: PANTOPRAZOLE 40 MG VIAL IV SCH (09:16)
[2018-10-25 12:53] VITALS: BP 115/92
== END 2018-10-25 13:15 | disposition home or self-care (01) | DRG 439 ==
LOC: N.3E → OBSVTOIN 14:03
PROVIDERS: ADMIT Surgery; ATTEND Surgery

== ENCOUNTER 2018-10-28 13:40 | Inpatient (IN) ==
[2018-10-28] MEDS ORDERED: ONDANSETRON 4 MG/2 ML VIAL IV STA (14:15)
[2018-10-28] MEDS ORDERED: HYDROmorphone 2 MG/1 ML VIAL IV STA (14:15)
[2018-10-28] MEDS ORDERED: SODIUM CHLORIDE 0.9% 1,000 ML IV STA (14:15)
[2018-10-28 15:15] LABS: Basophils # 0.1 10*3/uL (0.0-0.2); Basophils % 0.4 % (0.0-0.8); Eosinophils # 0.3 10*3/uL (0.0-0.87); Eosinophils % 2.7 % (0.00-10.9); Hematocrit 33.2 VOL% (35.7-47.0); Hemoglobin 10.9 GM/DL (12.0-16.0); Immature Granulocytes % 0.3 %; Immature Granulocytes Absolute 0.04 #; Lymphocytes # 0.7 10*3/uL (1.4-4.0); Lymphocytes % 5.8 % (21.3-54.2); Mean Corpuscular HGB Conc 32.8 GM/DL (32-36); Mean Corpuscular Volume 82.6 FL (87-102); Monocytes % 8.5 % (1.7-12.7); Neutrophils % 82.3 % (38.7-73.9); Platelet Count 443 T/CUMM (130-400); Red Blood Count 4.02 MC/CUMM (3.8-5.5); Red Cell Distribution Width 15.2 % (9.3-17.3); White Blood Count 12.1 T/CUMM (4-12)
[2018-10-28 15:15] LABS: Apearance,Urine CLEAR (Clear); Bacteria,Urine Occasional /HPF (Few); Bilirubin,Urine Negative (Negative); Blood, Urine Negative (Negative); Glucose,Urine (UA) Negative (Negative); Ketones,Urine 80 mg/dL (Negative); Nitrite,Urine Negative (Negative); Protein,Urine 30 MG/DL; RBC,Urine 8 /HPF (0-4); Squamous Epithelial Cell,Urine Occasional /HPF (0-10); Urine Color Yellow (Yellow); Urine Specific Gravity > 1.060 (1.001-1.035); Urine Urobilinogen < 2.0 EU/DL (0.2-1.0); WBC,Urine 1 /HPF (0-6)
[2018-10-28 15:36] LABS: Albumin 2.3 G/DL (3.4-5.0); Bilirubin,Total 0.9 MG/DL (0.2-1.0); Calcium 8.6 MG/DL (8.5-10.1); Osmolality,Calculated 271.8 MOS/KG (273-304)
[2018-10-28] MEDS ORDERED: ACETAMINOPHEN 325 MG TABLET PO PRN (15:49)
[2018-10-28] MEDS ORDERED: PROMETHAZINE 25 MG/1 ML VIAL IM PRN (15:49)
[2018-10-28] MEDS ORDERED: fentaNYL 25 MCG/HR PATCH TRANSDERM SCH (16:00)
[2018-10-28] MEDS ORDERED: ALBUMIN 5% 12.5 GM/250 ML VIAL IV ONE (17:02)
[2018-10-28 17:31] LABS: Apearance,Urine CLEAR (Clear); Bacteria,Urine Occasional /HPF (Few); Bilirubin,Urine Negative (Negative); Blood, Urine Negative (Negative); Glucose,Urine (UA) Negative (Negative); Ketones,Urine 80 mg/dL (Negative); Mucus,Urine Occasional /LPF (Occasional); Nitrite,Urine Negative (Negative); Protein,Urine 30 MG/DL; RBC,Urine 9 /HPF (0-4); Squamous Epithelial Cell,Urine Occasional /HPF (0-10); Urine Color Yellow (Yellow); Urine Specific Gravity > 1.060 (1.001-1.035); Urine Urobilinogen < 2.0 EU/DL (0.2-1.0); WBC,Urine 2 /HPF (0-6)
[2018-10-28] MEDS ORDERED: ONDANSETRON 4 MG/2 ML VIAL IV PRN (17:39)
[2018-10-28] MEDS ORDERED: HYDROmorphone 2 MG/1 ML VIAL IV PRN (17:39)
[2018-10-28] MEDS: LACTATED RINGERS 1,000 ML IV SCH (18:35)
[2018-10-28] MEDS ORDERED: PROPOFOL 200 MG/20 ML VIAL IV ONE (19:18)
[2018-10-28] MEDS ORDERED: fentaNYL 100 MCG/2 ML VIAL ONE (19:18)
[2018-10-28] MEDS ORDERED: SEVOFLURANE 1 UNIT/15 MINUTE INH ONE (19:18)
[2018-10-28] MEDS ORDERED: MIDAZOLAM 2 MG/2 ML VIAL ONE (19:18)
[2018-10-28] MEDS ORDERED: ACETAMINOPHEN 1,000 MG/100 ML VIAL IV ONE (19:19)
[2018-10-28] MEDS ORDERED: LABETALOL 100 MG/20 ML VIAL IV ONE (19:19)
[2018-10-28] MEDS ORDERED: ROCURONIUM 100 MG/10 ML VIAL IV ONE (19:19)
[2018-10-28] MEDS ORDERED: ESMOLOL 100 MG/10 ML VIAL IV ONE (19:19)
[2018-10-28] MEDS ORDERED: KETOROLAC 30 MG/1 ML VIAL ONE (19:19)
[2018-10-28] MEDS ORDERED: SUCCINYLCHOLINE 200 MG/10 ML VIAL ONE (19:19)
[2018-10-28] MEDS ORDERED: GLYCOPYRROLATE 0.4 MG/2 ML VIAL ONE (19:19)
[2018-10-28] MEDS ORDERED: PHENYLEPHRINE 1 MG/10 ML SYRINGE IV ONE (19:20)
[2018-10-28] MEDS ORDERED: LACTATED RINGERS 1,000 ML IV ONE (19:20)
[2018-10-28] MEDS ORDERED: NEOSTIGMINE 10 MG/10 ML VIAL ONE (19:20)
[2018-10-28] MEDS: ONDANSETRON 4 MG/2 ML VIAL IV PRN (19:55)
[2018-10-28] MEDS: HYDROmorphone 2 MG/1 ML VIAL IV PRN (19:55)
[2018-10-28] MEDS: cefOXitin 2,000 MG in SYRINGE 1 EACH IV SCH (21:59)
[2018-10-29] MEDS: HYDROmorphone 2 MG/1 ML VIAL IV PRN ×10 (00:54→23:14)
[2018-10-29] MEDS: LACTATED RINGERS 1,000 ML IV SCH ×3 (02:00→19:19)
[2018-10-29] MEDS: KETOROLAC 15 MG/1 ML VIAL IV PRN ×3 (02:17→19:15)
[2018-10-29] MEDS: cefOXitin 2,000 MG in SYRINGE 1 EACH IV SCH ×4 (04:08→22:21)
[2018-10-29 04:22] LABS: Basophils # 0.1 10*3/uL (0.0-0.2); Basophils % 0.3 % (0.0-0.8); Hematocrit 33.8 VOL% (35.7-47.0); Hemoglobin 10.6 GM/DL (12.0-16.0); Immature Granulocytes % 0.7 %; Immature Granulocytes Absolute 0.15 #; Lymphocytes # 0.5 10*3/uL (1.4-4.0); Lymphocytes % 2.4 % (21.3-54.2); Mean Corpuscular HGB Conc 31.4 GM/DL (32-36); Mean Corpuscular Volume 85.8 FL (87-102); Mean Platelet Volume 11.1 FL (9.6-12.0); Monocytes % 5.1 % (1.7-12.7); Neutrophils % 91.5 % (38.7-73.9); Platelet Count 429 T/CUMM (130-400); Red Blood Count 3.94 MC/CUMM (3.8-5.5); Red Cell Distribution Width 15.5 % (9.3-17.3); White Blood Count 22.4 T/CUMM (4-12)
[2018-10-29 04:44] LABS: Anisocytosis Slight; Lymphocytes 3 % (20-55); Microcytosis 1+; Segmented Neutrophils 91 % (50-85); Total Cells Counted 100
[2018-10-29 04:45] LABS: Platelet Estimate Normal
[2018-10-29 04:57] LABS: Albumin 2.3 G/DL (3.4-5.0); Bilirubin,Total 0.4 MG/DL (0.2-1.0); Calcium 8.1 MG/DL (8.5-10.1); Osmolality,Calculated 279.3 MOS/KG (273-304); Total Protein 5.6 G/DL (6.4-8.3)
[2018-10-29] MEDS ORDERED: SODIUM CHLORIDE 0.9% 1,000 ML IV ONE (05:21)
[2018-10-29] MEDS: PANTOPRAZOLE 40 MG VIAL IV SCH (08:35)
[2018-10-29] MEDS: ONDANSETRON 4 MG/2 ML VIAL IV PRN ×2 (08:35→14:04)
[2018-10-29] MEDS ORDERED: METOPROLOL TARTRATE 5 MG/5 ML VIAL IV ONE (12:10)
[2018-10-29] MEDS ORDERED: METOPROLOL TARTRATE 5 MG/5 ML VIAL IV PRN (13:58)
[2018-10-29] MEDS: METOPROLOL TARTRATE 5 MG/5 ML VIAL IV SCH (23:14)
[2018-10-30] MEDS: KETOROLAC 15 MG/1 ML VIAL IV PRN ×2 (01:30→10:58)
[2018-10-30] MEDS: ONDANSETRON 4 MG/2 ML VIAL IV PRN (01:30)
[2018-10-30] MEDS: HYDROmorphone 2 MG/1 ML VIAL IV PRN ×9 (02:43→23:47)
[2018-10-30] MEDS: LACTATED RINGERS 1,000 ML IV SCH ×3 (02:44→20:20)
[2018-10-30] MEDS: cefOXitin 2,000 MG in SYRINGE 1 EACH IV SCH ×4 (05:17→23:50)
[2018-10-30] MEDS: METOPROLOL TARTRATE 5 MG/5 ML VIAL IV SCH ×4 (05:20→23:51)
[2018-10-30 05:27] LABS: Basophils # 0.1 10*3/uL (0.0-0.2); Basophils % 0.3 % (0.0-0.8); Eosinophils # 1.1 10*3/uL (0.0-0.87); Eosinophils % 5.6 % (0.00-10.9); Hematocrit 30.6 VOL% (35.7-47.0); Hemoglobin 9.7 GM/DL (12.0-16.0); Immature Granulocytes % 0.5 %; Lymphocytes # 0.7 10*3/uL (1.4-4.0); Lymphocytes % 3.7 % (21.3-54.2); Mean Corpuscular HGB Conc 31.7 GM/DL (32-36); Mean Platelet Volume 11.3 FL (9.6-12.0); Monocytes % 6.6 % (1.7-12.7); Neutrophils % 83.3 % (38.7-73.9); Platelet Count 383 T/CUMM (130-400); Red Cell Distribution Width 15.7 % (9.3-17.3); White Blood Count 18.7 T/CUMM (4-12)
[2018-10-30 05:41] LABS: Albumin 1.8 G/DL (3.4-5.0); Bilirubin,Total 0.6 MG/DL (0.2-1.0); Calcium 8.2 MG/DL (8.5-10.1); Osmolality,Calculated 276.5 MOS/KG (273-304); Total Protein 5.2 G/DL (6.4-8.3)
[2018-10-30 06:03] LABS: Eosinophils 6 % (0-10); Lymphocytes 3 % (20-55); Platelet Estimate Normal; Segmented Neutrophils 87 % (50-85); Total Cells Counted 100
[2018-10-30] MEDS: PANTOPRAZOLE 40 MG VIAL IV SCH (08:44)
[2018-10-30] MEDS: KETOROLAC 15 MG/1 ML VIAL IM SCH ×2 (13:56→17:44)
[2018-10-31] MEDS: KETOROLAC 15 MG/1 ML VIAL IM SCH ×4 (01:53→21:16)
[2018-10-31] MEDS: HYDROmorphone 2 MG/1 ML VIAL IV PRN ×4 (02:00→11:30)
[2018-10-31] MEDS: LACTATED RINGERS 1,000 ML IV SCH ×3 (05:15→23:08)
[2018-10-31] MEDS: cefOXitin 2,000 MG in SYRINGE 1 EACH IV SCH (05:16)
[2018-10-31] MEDS: METOPROLOL TARTRATE 5 MG/5 ML VIAL IV SCH ×3 (06:14→18:31)
[2018-10-31] MEDS: ONDANSETRON 4 MG/2 ML VIAL IV PRN ×2 (07:42→15:00)
[2018-10-31] MEDS: PANTOPRAZOLE 40 MG VIAL IV SCH (09:59)
[2018-10-31] MEDS: CIPROFLOXACIN INJ 400 MG in PREMIX 1 EACH IV SCH ×2 (10:04→21:13)
[2018-10-31] MEDS ORDERED: HYDROmorphone 2 MG/1 ML VIAL IV PRN ×2 (11:49)
[2018-10-31] MEDS ORDERED: HYDROmorphone 2 MG/1 ML VIAL IV SCH ×2 (12:00)
[2018-10-31] MEDS: HYDROmorphone 2 MG/1 ML VIAL IV SCH ×11 (13:15→22:19)
[2018-10-31] MEDS: fentaNYL 75 MCG/HR PATCH TRANSDERM SCH (13:22)
[2018-11-01] MEDS: HYDROmorphone 2 MG/1 ML VIAL IV SCH ×21 (00:28→23:00)
[2018-11-01] MEDS: METOPROLOL TARTRATE 5 MG/5 ML VIAL IV SCH ×5 (00:31→23:03)
[2018-11-01] MEDS: KETOROLAC 15 MG/1 ML VIAL IM SCH ×4 (03:50→20:41)
[2018-11-01] MEDS: LACTATED RINGERS 1,000 ML IV SCH ×2 (08:48→17:54)
[2018-11-01] MEDS: CIPROFLOXACIN INJ 400 MG in PREMIX 1 EACH IV SCH ×2 (08:49→20:51)
[2018-11-01] MEDS: PANTOPRAZOLE 40 MG VIAL IV SCH (08:50)
[2018-11-01] MEDS: ONDANSETRON 4 MG/2 ML VIAL IV PRN (11:33)
[2018-11-01] MEDS ORDERED: KETAMINE 500 MG/10 ML VIAL ONE (19:27)
[2018-11-01] MEDS ORDERED: fentaNYL 100 MCG/2 ML VIAL ONE (19:28)
[2018-11-01] MEDS ORDERED: PROPOFOL 200 MG/20 ML VIAL IV ONE (19:28)
[2018-11-01] MEDS ORDERED: ONDANSETRON 4 MG/2 ML VIAL ONE (19:28)
[2018-11-01] MEDS ORDERED: LABETALOL 100 MG/20 ML VIAL IV ONE (19:28)
[2018-11-01] MEDS ORDERED: MIDAZOLAM 2 MG/2 ML VIAL ONE (19:28)
[2018-11-02] MEDS: HYDROmorphone 2 MG/1 ML VIAL IV SCH ×24 (01:09→23:26)
[2018-11-02 05:16] LABS: Basophils % 0.3 % (0.0-0.8); Eosinophils # 1.1 10*3/uL (0.0-0.87); Eosinophils % 9.6 % (0.00-10.9); Hematocrit 31.6 VOL% (35.7-47.0); Hemoglobin 9.8 GM/DL (12.0-16.0); Immature Granulocytes % 0.4 %; Immature Granulocytes Absolute 0.05 #; Lymphocytes # 0.7 10*3/uL (1.4-4.0); Lymphocytes % 6.1 % (21.3-54.2); Mean Corpuscular Volume 86.1 FL (87-102); Mean Platelet Volume 10.6 FL (9.6-12.0); Monocytes % 8.9 % (1.7-12.7); Neutrophils % 74.7 % (38.7-73.9); Platelet Count 491 T/CUMM (130-400); Red Blood Count 3.67 MC/CUMM (3.8-5.5); Red Cell Distribution Width 15.8 % (9.3-17.3); White Blood Count 11.4 T/CUMM (4-12)
[2018-11-02] MEDS: KETOROLAC 15 MG/1 ML VIAL IM SCH ×4 (05:24→18:44)
[2018-11-02] MEDS: METOPROLOL TARTRATE 5 MG/5 ML VIAL IV SCH ×3 (05:24→18:40)
[2018-11-02 05:44] LABS: Calcium 8.1 MG/DL (8.5-10.1); Osmolality,Calculated 277.5 MOS/KG (273-304)
[2018-11-02] MEDS: LACTATED RINGERS 1,000 ML IV SCH ×3 (07:27→18:43)
[2018-11-02] MEDS: PANTOPRAZOLE 40 MG VIAL IV SCH (08:25)
[2018-11-02] MEDS: CIPROFLOXACIN INJ 400 MG in PREMIX 1 EACH IV SCH ×2 (08:28→20:23)
[2018-11-02] MEDS ORDERED: fentaNYL 100 MCG/2 ML VIAL ONE (11:44)
[2018-11-02] MEDS ORDERED: PROPOFOL 200 MG/20 ML VIAL IV ONE (11:44)
[2018-11-02] MEDS ORDERED: LABETALOL 100 MG/20 ML VIAL IV ONE (11:45)
[2018-11-02] MEDS ORDERED: MIDAZOLAM 2 MG/2 ML VIAL ONE (11:45)
[2018-11-02] MEDS ORDERED: ONDANSETRON 4 MG/2 ML VIAL ONE (11:45)
[2018-11-02] MEDS ORDERED: KETAMINE 500 MG/10 ML VIAL ONE (11:45)
[2018-11-02] MEDS ORDERED: LACTATED RINGERS 1,000 ML IV ONE (11:45)
[2018-11-03] MEDS: METOPROLOL TARTRATE 5 MG/5 ML VIAL IV SCH ×3 (00:27→12:10)
[2018-11-03] MEDS: HYDROmorphone 2 MG/1 ML VIAL IV SCH ×14 (00:33→13:03)
[2018-11-03] MEDS: KETOROLAC 15 MG/1 ML VIAL IM SCH ×3 (00:33→12:13)
[2018-11-03] MEDS: LACTATED RINGERS 1,000 ML IV SCH (03:43)
[2018-11-03 05:09] VITALS: BP 160/98
[2018-11-03] MEDS: PANTOPRAZOLE 40 MG VIAL IV SCH (08:45)
[2018-11-03] MEDS: fentaNYL 75 MCG/HR PATCH TRANSDERM SCH (08:48)
[2018-11-03] MEDS: CIPROFLOXACIN INJ 400 MG in PREMIX 1 EACH IV SCH (08:49)
== END 2018-11-03 12:55 | disposition hospice, home (50) | DRG 357 ==
LOC: N.ED 13:40 → N.EDINP 16:29 → N.CC 19:14 → N.4E 10-30 16:10
PROVIDERS: ADMIT Surgery; ATTEND Surgery